=== PATIENT | female | born 1980 | race Caucasian/White ===

== ENCOUNTER 2019-04-24 16:05 | Inpatient (IN) | payer OTHER ==
[2019-04-24 16:56] VITALS: BMI 29.2
[2019-04-24] MEDS ORDERED: DEXTROSE 5%-LACTATED RINGERS 1,000 ML IV SCH (17:00)
[2019-04-24 17:02] LABS: BASO % 0.2 % (0-2.0); EOS % 0.6 % (0-4.5); HEMATOCRIT 36.3 % (32.4-45.2); HEMOGLOBIN 11.9 GM/dL (10.7-15.3); LYMPH % 18.5 % (8-40); MCH 28.8 pg (25.7-33.7); MCHC 32.9 g/dl (32.0-36.0); MEAN CELL VOLUME 87.5 fl (80-96); MONO % 5.9 % (3.8-10.2); NEUT % 74.8 % (42.8-82.8); PLATELET COUNT 366 K/MM3 (134-434); RBC 4.15 M/mm3 (3.60-5.2); RDW 13.8 % (11.6-15.6); WHITE BLOOD COUNT 11.2 K/mm3 (4.0-10.0)
[2019-04-24] MEDS ORDERED: WITCH HAZEL 50% (TUCKS) 40 PAD/JAR PAD TP PRN (17:02)
[2019-04-24] MEDS ORDERED: BENZOCAINE 28 GM HEMORRHOIDAL OINTMENT TP PRN (17:02)
[2019-04-24] MEDS ORDERED: METHYLERGONOVINE MALEATE 0.2 MG/1 ML AMP IM PRN (17:02)
[2019-04-24] MEDS ORDERED: IBUPROFEN 600 MG TABLET (FP) PO PRN (17:02)
[2019-04-24] MEDS ORDERED: BISACODYL 10 MG SUPP.RECT RC PRN (17:02)
[2019-04-24] MEDS ORDERED: BENZOCAINE 20% 57 GM BOTTLE TP PRN (17:02)
[2019-04-24] MEDS ORDERED: ACETAMINOPHEN 325 MG TABLET (FP) PO PRN (17:02)
--- NOTE | 2019-04-24 17:02 | HP ---
Past Medical History - Admission Chief Complaint: Labor pain History of Present Illness: 38 yo @ 40.2 weeks gestation, presents to L&D in active labor. She states that labor started 1 hour ago. Upon admission she was 9cm dilated with intact membrane. History Source: Patient Limitations to Obtaining History: No Limitations - Past Medical History ...: 3 ...Para: 1 ...Term: 1 ...: 0 ...Spon : 1 ...Induced : 0 ...Multiple Gestation: 0 ...EDC by Sono: 04/22/19 - Past Surgical History Past Surgical History: Yes: None Hx Myomectomy: No Hx Transabdominal Cerclage: No - Smoking History Smoking history: Never smoked Have you smoked in the past 12 months: No - Alcohol/Substance Use Hx Alcohol Use: No History of Substance Use: reports: None - Social History Usual Living Arrangement: Yes: With Significant Other History of Recent Travel: No Home Medications - Allergies Allergies/Adverse Reactions: Allergies Allergy/AdvReac Type Severity Reaction Status Date / Time No Known Allergies Allergy Verified 04/24/19 16:46 - Home Medications Home Medications: Ambulatory Orders Vitamins (Sjr) - 1 tab PO DAILY 04/24/19 Topiramate [Topamax] 100 mg PO DAILY 04/24/19 Family Disease History - Family Disease History Family History: Unremarkable Review of Systems - Review of Systems Constitutional: reports: No Symptoms Eyes: reports: No Symptoms HENT: reports: No Symptoms Neck: reports: No Symptoms Cardiovascular: reports: No Symptoms Respiratory: reports: No Symptoms Gastrointestinal: reports: No Symptoms Genitourinary: reports: Pain Breasts: reports: No Symptoms Reported Musculoskeletal: reports: No Symptoms Integumentary: reports: No Symptoms Neurological: reports: No Symptoms Endocrine: reports: No Symptoms Hematology/Lymphatic: reports: No Symptoms Psychiatric: reports: No Symptoms Pain Intensity: 9 Physical Exam - Maternity Constitutional: Yes: Well Nourished Eyes: Yes: Conjunctiva Clear HENT: Yes: Atraumatic Neck: Yes: Supple Cardiovascular: Yes: Regular Rate and Rhythm Lungs: Clear to auscultation Breast(s): Yes: WNL - Abdominal Exam/OB Number of Fetuses: Single Presentation: Vertex - Vaginal Exam/OB Dilatation (cm): 9 Effacement (%): 100 Amniotic Membrane Status: Intact Presentation: Vertex/Position Station: -1 - Physical Exam Musculoskeletal: Yes: WNL Extremities: Yes: WNL ...Motor Strength: WNL Psychiatric: Yes: Alert, Oriented Problem List - Problems (1) 40 weeks gestation of Code(s): Z3A.40 - 40 WEEKS GESTATION OF Assessment/Plan Active labor Admit to L&D Anticipate
[2019-04-24] MEDS ORDERED: AMPICILLIN - 2 GM in SODIUM CHLORIDE 100 ML IVPB ONE (17:10)
[2019-04-24] MEDS ORDERED: OXYTOCIN 20 UNITS in 0.9% NS 20 UNIT/1,000 ML INFUS.BAG IV SCH (17:15)
[2019-04-24 17:18] LABS: INR 0.92 (0.83-1.09); PROTHROMBIN TIME (PATIENT) 10.8 SEC (9.7-13.0)
[2019-04-24 17:21] LABS: ACTIVATED PTT 26.1 SECONDS (25.2-36.5)
[2019-04-24 17:33] LABS: ALBUMIN 3.1 g/dl (3.4-5.0); BILIRUBIN,TOTAL 0.2 mg/dL (0.2-1); BLOOD UREA NITROGEN 13.5 mg/dL (7-18); CALCIUM 9.6 mg/dL (8.5-10.1); CREATININE 0.6 mg/dL (0.55-1.3); POTASSIUM 4.2 mmol/L (3.5-5.1); TOT PROT 6.9 g/dl (6.4-8.2)
[2019-04-24] MEDS: FERROUS SO4 325 MG TABLET (FP) PO SCH (22:03)
--- NOTE | 2019-04-25 05:52 | PN ---
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 Nose / mouth was suctioned and the cord clamped and cut. Baby handed to nurse Placenta expelled spontaneously intact. Mother in stable condition
--- NOTE | 2019-04-25 05:54 | PN ---
Post Progress Note - Subjective Subjective: 38 yo status post vaginal delivery, seen and evaluated. Doing well. Post Day: 1 Type of Delivery: Vital Signs: Vital Signs Temperature 97.9 F 04/25/19 02:00 Pulse Rate 71 04/25/19 02:00 Respiratory Rate 18 04/25/19 02:00 Blood Pressure 98/59 L 04/25/19 02:00 O2 Sat by Pulse Oximetry (%) 100 04/24/19 17:45 Uterus: Yes: Fundus Firm Abdomen/GI: Yes: Abdomen soft, Tolerating PO Lochia: Yes: Rubra Lochia, amount: Moderate Extremities: Yes: Calves non-tender Perineum: Yes: Intact Activity: Ambulating - Labs Labs: CBC WBC 11.2 K/mm3 (4.0-10.0) H 04/24/19 16:40 RBC 4.15 M/mm3 (3.60-5.2) 04/24/19 16:40 Hgb 11.9 GM/dL (10.7-15.3) 04/24/19 16:40 Hct 36.3 % (32.4-45.2) 04/24/19 16:40 MCV 87.5 fl (80-96) 04/24/19 16:40 MCH 28.8 pg (25.7-33.7) 04/24/19 16:40 MCHC 32.9 g/dl (32.0-36.0) 04/24/19 16:40 RDW 13.8 % (11.6-15.6) 04/24/19 16:40 Plt Count 366 K/MM3 (134-434) 04/24/19 16:40 MPV 8.0 fl (7.5-11.1) 04/24/19 16:40 Absolute Neuts (auto) 8.4 K/mm3 (1.5-8.0) H 04/24/19 16:40 Neutrophils % 74.8 % (42.8-82.8) 04/24/19 16:40 Lymphocytes % 18.5 % (8-40) 04/24/19 16:40 Monocytes % 5.9 % (3.8-10.2) 04/24/19 16:40 Eosinophils % 0.6 % (0-4.5) 04/24/19 16:40 Basophils % 0.2 % (0-2.0) 04/24/19 16:40 Nucleated RBC % 0 % (0-0) 04/24/19 16:40 Problem List - Problems (1) 40 weeks gestation of Code(s): Z3A.40 - 40 WEEKS GESTATION OF (2) Status post normal vaginal delivery Code(s): [id number] - Assessment/Plan Status post vaginal delivery Stable Continue routine care
[2019-04-25 08:07] LABS: BASO % 0.1 % (0-2.0); EOS % 0.4 % (0-4.5); HEMATOCRIT 32.3 % (32.4-45.2); HEMOGLOBIN 11.1 GM/dL (10.7-15.3); LYMPH % 12.4 % (8-40); MCH 29.9 pg (25.7-33.7); MCHC 34.4 g/dl (32.0-36.0); MEAN CELL VOLUME 86.9 fl (80-96); MEAN PLT VOLUME 7.4 fl (7.5-11.1); MONO % 6.3 % (3.8-10.2); NEUT % 80.8 % (42.8-82.8); PLATELET COUNT 280 K/MM3 (134-434); RBC 3.72 M/mm3 (3.60-5.2); RDW 13.7 % (11.6-15.6); WHITE BLOOD COUNT 10.7 K/mm3 (4.0-10.0)
[2019-04-25 09:12] LABS: RPR NONREACTIVE (NONREACTIVE)
[2019-04-25] MEDS: FERROUS SO4 325 MG TABLET (FP) PO SCH ×2 (09:21→22:37)
[2019-04-25] MEDS: TOPIRAMATE 100 MG TABLET PO SCH (09:21)
[2019-04-25] MEDS: PRENATAL VITAMINS W/ FOLIC ACID TABLET (FP) PO SCH (09:21)
[2019-04-25] MEDS ORDERED: PRENATAL VITAMINS W/ FOLIC ACID TABLET (FP) PO SCH (10:00)
[2019-04-25] MEDS ORDERED: DIPHTH,PERTUSS(ACELL),TET 0.5 ML DISP.SYRIN IM ONE (10:00)
[2019-04-25] MEDS ORDERED: SENNOSIDES/DOCUSATE COMBO (SENNA PLUS) TABLET (UD) PO PRN (22:00)
--- NOTE | 2019-04-26 10:28 | DS ---
Physical Exam-[employer] Vital Signs: Vital Signs Temperature 97.7 F 04/25/19 22:00 Pulse Rate 60 04/25/19 22:00 Respiratory Rate 20 04/25/19 22:00 Blood Pressure 110/59 L 04/25/19 22:00 O2 Sat by Pulse Oximetry (%) 100 04/24/19 17:45 Constitutional: Yes: Well Nourished Eyes: Yes: Conjunctiva Clear HENT: Yes: Atraumatic Neck: Yes: Supple Cardiovascular: Yes: Regular Rate and Rhythm Respiratory: Yes: Regular Gastrointestinal: Yes: Normal Bowel Sounds ...Rectal Exam: Yes: WNL Renal/: Yes: WNL Pelvis: Yes: WNL External Genitalia: Yes: Normal Vaginal Exam: Yes: Normal Cervix: Yes: Normal Uterus: Yes: Firm ....Post : Yes: Uterus firm Breast(s): Yes: WNL Musculoskeletal: Yes: WNL Extremities: Yes: WNL Wound/Incision: Yes: Well Approximated Neurological: Yes: Alert, Oriented ...Motor Strength: WNL Psychiatric: Yes: Alert, Oriented Labs: CBC, BMP 04/25/19 07:42 04/24/19 16:40 Delivery - Delivery Vaginal Delivery: Spontaneous Type of Anesthesia: None Episiotomy/Laceration: 1st degree EBL (cc): 250 Delivery, Single - Stages of Labor Date 1st Stage Initiatied: 04/24/19 Time 1st Stage Initiated: 15:00 Date 2nd Stage Initiated: 04/24/19 Time 2nd Stage Initiated: 16:26 Date of Delivery: 04/24/19 Time of Delivery: 16:28 Time Placenta Delivered: 16:40 - 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 Present: No Gender: Female Weight: 7 lb 8 oz Total Hours ROM (Hrs/Mins): 0hrs 15min - 1 Minute Total Score: 9 5 Minutes Total Score: 9 - Kinde Feeding Plan Initial Plan: Exclusive throughout hospitalization Discharge Summary Reason For Visit: LABOR ADMIT Current Active Problems 40 weeks gestation of (Acute) Status post normal vaginal delivery (Acute) Procedures: Principal: Normal spontaneous vaginal delivery Hospital Course: Routine care Condition: Good - Instructions Diet, Activity, Other Instructions: Regular diet No douching, no sexual intercourse x 6 weeks F/U with MD in 6 weeks Disposition: HOME - Home Medications Comprehensive Discharge Medication List: Ambulatory Orders Vitamins (Sjr) - 1 tab PO DAILY 04/24/19 Topiramate [Topamax] 100 mg PO DAILY 04/24/19 Mesalamine [Lialda] 2.4 gm PO DAILY 04/25/19
[2019-04-26] MEDS: PRENATAL VITAMINS W/ FOLIC ACID TABLET (FP) PO SCH (10:35)
[2019-04-26] MEDS: FERROUS SO4 325 MG TABLET (FP) PO SCH (10:35)
[2019-04-26] MEDS: TOPIRAMATE 100 MG TABLET PO SCH (10:35)
[2019-04-26 15:09] VITALS: BP 122/72; PULSE 86; TEMP 98.5
== END 2019-04-26 14:40 | disposition home or self-care (01) | DRG 807 ==
LOC: JLDR 16:05 → J3W 18:30
PROVIDERS: ADMIT Obstetrics & Gynecology; ATTEND Obstetrics & Gynecology
PROC: 10E0XZZ Delivery of Products of Conception, External Approach (ICD-10-PCS; principal; 2019-04-24)
PROC: 0HQ9XZZ Repair Perineum Skin, External Approach (ICD-10-PCS; 2019-04-24)
PROC: 0W8NXZZ Division of Female Perineum, External Approach (ICD-10-PCS; 2019-04-24)
DX: O70.0 First degree perineal laceration during delivery (principal); Z37.0 Single live birth; Z3A.40 40 weeks gestation of pregnancy
CPT/HCPCS: 36415; 59409; 80053; 85025; 85610; 85730; 86593; 86762; 86850; 86900; 86901; 87340; 87389; 90715

== ENCOUNTER 2020-09-30 07:03 | Emergency (ER) | payer OTHER ==
[2020-09-30 07:20] VITALS: BP 103/72; PULSE 67; TEMP 98; BMI 25.2
[2020-10-01 15:07] LABS: MUMPS ANTIBODY IGG 61.4 AU/mL (Immune >10.9)
[2020-10-02 23:07] LABS: MUMPS ANTIBODY IGM <0.80 AU (0.00-0.79)
== END 2020-09-30 09:28 | disposition home or self-care (01) ==
LOC: JER 07:03 → JERFT 07:03
DX: R59.9 Enlarged lymph nodes, unspecified (principal)
CPT/HCPCS: 36415; 76536-TC; 86735; 86780; 99284-25